=== PATIENT | male | born 1985 | race Caucasian/White ===

== ENCOUNTER 2017-12-19 07:55 | Emergency (ER) | payer OTHER ==
[~2017-12-19] VITALS: Ht 170.2 cm; Wt 86.2 kg
[~2017-12-19 07:55] MED LIST: DOXYCYCLINE 10100 MG PO
[2017-12-19 08:12] VITALS: BP 134/83
[2017-12-19] MEDS ORDERED: KEFLEX500 M1 PO (08:26)
[2017-12-19] MEDS ORDERED: NORCO 5-325 TA1 EACH PO (08:26)
[2017-12-19] MEDS ORDERED: BACTRIM DS TAB1 EACH PO (08:26)
== END 2017-12-19 08:37 | disposition home or self-care (01) ==
LOC: M.ERS 07:55
DX: L02.416 Cutaneous abscess of left lower limb (principal); L03.116 Cellulitis of left lower limb; F17.210 Nicotine dependence, cigarettes, uncomplicated

== ENCOUNTER 2018-03-06 08:28 | Emergency (ER) | payer OTHER ==
[~2018-03-06] VITALS: Ht 170.2 cm; Wt 88.5 kg
[~2018-03-06 08:28] MED LIST changes: +BACTRIM DS TAB1 EACH PO; +KEFLEX500 M1 PO; +NORCO 5-325 TA1 EACH PO
[2018-03-06 08:42] VITALS: BP 122/86
== END 2018-03-06 08:48 | disposition home or self-care (01) ==
LOC: M.ERS 08:28
DX: T65.891A Toxic effect of other specified substances, accidental (unintentional), initial encounter (principal); Y92.89 Other specified places as the place of occurrence of the external cause; H57.12 Ocular pain, left eye; F17.210 Nicotine dependence, cigarettes, uncomplicated